=== PATIENT | male | born 1960 | race Caucasian/White ===

== ENCOUNTER 2018-09-21 14:56 | Inpatient (IN) | payer BC ==
[2018-09-21] MEDS ORDERED: oxyCODONE 15 MG TAB PO (16:30)
[2018-09-21] MEDS ORDERED: ACETAMINOPHEN 325 MG TAB PO (16:30)
[2018-09-21] MEDS ORDERED: NA PHOSPHATE/BIPHOS 133 ML ENEMA PR (16:30)
[2018-09-21] MEDS: oxyCODONE 5 MG TAB PO ×2 (17:18→21:49)
[2018-09-21 20:23] LABS: ADD UMIC YES; UR ASCORBIC ACID NEGATIVE (NEGATIVE); UR BILIRUBIN (Dip) NEGATIVE (NEGATIVE); UR BLOOD (Dip) 1+ mg/dL (NEGATIVE); UR CLARITY CLEAR (CLEAR); UR COLOR YELLOW (YELLOW); UR GLUCOSE (Dip) NEGATIVE (NEGATIVE); UR KETONES (Dip) NEGATIVE (NEGATIVE); UR LEUKOCYTE ESTERASE (Dip) NEGATIVE Leu/ul (NEGATIVE); UR MUCUS FEW /HPF (NONE SEEN); UR NITRITE (Dip) NEGATIVE (NEGATIVE); UR RBC 0 /HPF (0-5); UR SPECIFIC GRAVITY (Dip) 1.026 (1.003-1.030); UR TOTAL PROTEIN (Dip) NEGATIVE (NEGATIVE); UR UROBILINOGEN (Dip) 2+ mg/dL (NEGATIVE); UR WBC 1 /HPF (0-5)
[2018-09-21] MEDS: SENNA/DOCUSATE NA (8.6MG/50MG) TAB PO (21:48)
[2018-09-22 08:22] LABS: ADD MAN DIFF? NO
[2018-09-22 08:26] LABS: BASOPHILS % 0.5 % (0.0-2.0); EOSINOPHILS # 0.1 10^3/ul (0.0-0.5); EOSINOPHILS % 1.3 % (0.0-7.0); HEMATOCRIT 27.3 % (42.0-52.0); HEMOGLOBIN 9.3 g/dl (14.0-18.0); LYMPHOCYTES # 1.8 10^3/ul (0.8-2.9); LYMPHOCYTES % 23.7 % (15.0-51.0); MEAN CORPUSCULAR HEMOGLOBIN 30.4 pg (29.0-33.0); MEAN CORPUSCULAR HGB CONC 34.1 g/dl (32.0-37.0); MEAN CORPUSCULAR VOLUME 89.2 fl (82.0-101.0); MEAN PLATELET VOLUME 9.4 fl (7.4-10.4); MONOCYTE # 0.7 10^3/ul (0.3-0.9); MONOCYTES % 9.1 % (0.0-11.0); NEUTROPHIL # 4.8 10^3/ul (1.6-7.5); NEUTROPHILS % 63.6 % (39.0-77.0); PLATELET COUNT 323 10^3/UL (140-415); RED BLOOD COUNT 3.06 10^6/ul (4.70-6.10); RED CELL DISTRIBUTION WIDTH 11.8 % (11.5-14.5)
[2018-09-22 08:26] LABS: WHITE BLOOD COUNT 7.6 10^3/ul (4.8-10.8)
[2018-09-22] MEDS: FAMOTIDINE 20 MG TAB PO (08:47)
[2018-09-22] MEDS: ENOXAPARIN 40 MG/0.4 ML SYG SC (08:48)
[2018-09-22] MEDS: oxyCODONE 5 MG TAB PO ×2 (08:52→19:57)
[2018-09-22] MEDS: SENNA/DOCUSATE NA (8.6MG/50MG) TAB PO (21:00)
[2018-09-23] MEDS: oxyCODONE 5 MG TAB PO ×2 (07:23→14:32)
[2018-09-23] MEDS: ENOXAPARIN 40 MG/0.4 ML SYG SC (08:45)
[2018-09-23] MEDS: SENNA/DOCUSATE NA (8.6MG/50MG) TAB PO (20:37)
[2018-09-24] MEDS: oxyCODONE 5 MG TAB PO ×3 (06:53→19:19)
[2018-09-24] MEDS: ENOXAPARIN 40 MG/0.4 ML SYG SC (09:00)
[2018-09-24] MEDS: SENNA/DOCUSATE NA (8.6MG/50MG) TAB PO (21:19)
[2018-09-25] MEDS: oxyCODONE 5 MG TAB PO ×4 (05:30→22:25)
[2018-09-25 07:36] LABS: ANION GAP 8 (5-13); BLOOD UREA NITROGEN 14 mg/dl (7-20); CARBON DIOXIDE 28 mmol/L (21-31); CHLORIDE 102 mmol/L (97-110); CREATININE 0.74 mg/dl (0.61-1.24); Estimated GFR > 60 mL/min (>60); GLUCOSE 104 mg/dl (70-220); POTASSIUM 4.2 mmol/L (3.5-5.1); SODIUM 138 mmol/L (135-144)
[2018-09-25] MEDS: ENOXAPARIN 40 MG/0.4 ML SYG SC (09:44)
[2018-09-25] MEDS: SENNA/DOCUSATE NA (8.6MG/50MG) TAB PO (21:11)
[2018-09-26] MEDS: ENOXAPARIN 40 MG/0.4 ML SYG SC (09:01)
[2018-09-26] MEDS: oxyCODONE 5 MG TAB PO ×2 (14:35→20:54)
[2018-09-26] MEDS: SENNA/DOCUSATE NA (8.6MG/50MG) TAB PO (20:54)
[2018-09-27] MEDS: oxyCODONE 5 MG TAB PO ×3 (08:29→18:32)
[2018-09-27] MEDS: ENOXAPARIN 40 MG/0.4 ML SYG SC (08:32)
[2018-09-27] MEDS: SENNA/DOCUSATE NA (8.6MG/50MG) TAB PO (20:29)
[2018-09-28] MEDS: MAGNESIUM HYDROXIDE 30ML CUP PO (08:41)
[2018-09-28] MEDS: oxyCODONE 5 MG TAB PO (08:41)
[2018-09-28] MEDS: ENOXAPARIN 40 MG/0.4 ML SYG SC (08:42)
== END 2018-09-28 15:00 | disposition home health service (06) | DRG 561 ==
LOC: VRC 14:56
PROC: F07Z5ZZ Bed Mobility Treatment (ICD-10-PCS; principal; 2018-09-21)
PROC: F08Z2ZZ Grooming/Personal Hygiene Treatment (ICD-10-PCS; 2018-09-21)
DX: S82.101D Unspecified fracture of upper end of right tibia, subsequent encounter for closed fracture with routine healing (principal); S80.11XD Contusion of right lower leg, subsequent encounter; W11.XXXD Fall on and from ladder, subsequent encounter; R52 Pain, unspecified; D64.9 Anemia, unspecified
CPT/HCPCS: 73590; 73610-RT; 80048; 81001; 85025; 87081; 87086; 97110; 97116; 97150; 97163; 97166; 97530; 97535; 97542

== ENCOUNTER → 2018-10-13 | Outpatient (CLI) | payer BC | END | disposition home or self-care (01) | LOC: HKI 09:02 | DX: S82.251D Displaced comminuted fracture of shaft of right tibia, subsequent encounter for closed fracture with routine healing (principal); X58.XXXD Exposure to other specified factors, subsequent encounter | CPT/HCPCS: 73590; 73590-RT; 73610-RT ==

== ENCOUNTER → 2018-11-03 | Outpatient (CLI) | payer BC | END | disposition home or self-care (01) | LOC: HKI 08:43 | DX: Z47.89 Encounter for other orthopedic aftercare (principal); S82.201D Unspecified fracture of shaft of right tibia, subsequent encounter for closed fracture with routine healing; X58.XXXD Exposure to other specified factors, subsequent encounter | CPT/HCPCS: 73590; 73590-RT; 73610-RT ==

== ENCOUNTER → 2018-12-01 | Outpatient (CLI) | payer BC | END | disposition home or self-care (01) | LOC: HKI 10:07 | DX: S82.201D Unspecified fracture of shaft of right tibia, subsequent encounter for closed fracture with routine healing (principal); X58.XXXD Exposure to other specified factors, subsequent encounter | CPT/HCPCS: 73590; 73590-RT; 73610-RT ==

== ENCOUNTER → 2018-12-29 | Outpatient (CLI) | payer BC | END | disposition home or self-care (01) | LOC: HKI 09:15 | DX: S82.251D Displaced comminuted fracture of shaft of right tibia, subsequent encounter for closed fracture with routine healing (principal); X58.XXXD Exposure to other specified factors, subsequent encounter | CPT/HCPCS: 73590; 73590-RT; 73610-RT ==

== ENCOUNTER → 2019-01-23 | Outpatient (CLI) | payer BC | END | disposition home or self-care (01) | LOC: HKI 15:26 | DX: I82.431 Acute embolism and thrombosis of right popliteal vein (principal); Z79.01 Long term (current) use of anticoagulants | CPT/HCPCS: 73590; 73590-RT; 73610-RT ==

== ENCOUNTER → 2019-02-27 | Outpatient (CLI) | payer BC | END | disposition home or self-care (01) | LOC: HKI 15:13 | DX: Z47.1 Aftercare following joint replacement surgery (principal); S82.201G Unspecified fracture of shaft of right tibia, subsequent encounter for closed fracture with delayed healing; X58.XXXD Exposure to other specified factors, subsequent encounter | CPT/HCPCS: 73590; 73590-RT; 73610-RT ==

== ENCOUNTER → 2019-04-10 | Outpatient (CLI) | payer BC | END | disposition home or self-care (01) | LOC: HKI 08:48 | DX: S82.201D Unspecified fracture of shaft of right tibia, subsequent encounter for closed fracture with routine healing (principal); X58.XXXD Exposure to other specified factors, subsequent encounter | CPT/HCPCS: 73590; 73590-RT; 73610-RT ==